=== PATIENT | female | born 1990 | race Caucasian/White ===

== ENCOUNTER 2019-01-02 05:32 | Inpatient (IN) ==
[~2019-01-02 05:32] MED LIST: *HR* Nalbuphine 10 MG/ML AMPUL IVP PRN; Famotidine 20 MG/2 ML VIAL IVP PRN; Lidocaine 1% 20 ML MDV INFILT PRN; Metoclopramide 10 MG/2 ML VIAL IVP PRN; Naloxone 0.4 MG/ML INJ IVP PRN; Ondansetron 4 MG/2 ML VIAL IVP PRN
[2019-01-02] MEDS ORDERED: Ringers Solution, Lactated 1,000 ML IVC SCH (05:45)
[2019-01-02 05:48] LABS: Basophils % 0.2 %; Eosinophils # 0.1 K/mcL (0.0-0.6); Eosinophils % 0.3 %; Hematocrit 35.1 % (35.3-44.9); Hemoglobin 11.9 g/dL (11.5-15.4); Immature Granulocytes % 0.6 % (0-4); Lymphocytes # 2.9 K/mcL (0.6-4.6); Lymphocytes % 13.7 %; Mean Corpuscular HGB Conc 33.9 g/dL (31.6-35.5); Mean Corpuscular Volume 88.4 fL (83.0-100.0); Mean Platelet Volume 11.6 fL (9.4-12.4); Monocytes # 1.3 K/mcL (0.0-1.3); Monocytes % 6.1 %; Neutrophils # 16.8 K/mcL (1.6-8.9); Platelet Count 218 K/mcL (140-400); Red Blood Count 3.97 M/mcL (3.82-4.97); Red Cell Distribution Width 12.1 % (11.5-14.5); Segmented Neutrophils % 79.1 %; White Blood Count 21.2 K/mcL (4.3-11.1)
--- NOTE | 2019-01-02 06:14 | OB/GYN History & Physical ---
Date of Encounter: 01/02/19 Time of Encounter: 06:12 Assessment and Plan (1) 39 weeks gestation of Current visit: Yes Status: Acute Admitted for delivery (2) Rh negative status during Current visit: Yes Status: Acute Rhogam evaluation following delivery Qualifiers: Trimester: third trimester Qualified Code(s): O26.893 - Other specified related conditions, third trimester; Z67.91 - Unspecified blood type, Rh negative History of Present Illness Chief complaint: Spontaneous labor HPI: Ms. Ochoa is a 28 year old female at 39w6d presents to labor and delivery with complaints of contractions that started around midnight and progressively got stronger and closer together. Patient denies LOF but reports bloody show and good movement. Patient denies any complications with current . Patient received care with Dr. Barbosa. Blood type: AB Negative Rubella: Immune Hep B: Nonreactive GBS: Negative Past Med Surg Social Fam HX - Past Medical History Source: patient Medical history: no medical history Psychiatric history: no psych history - Past Surgical History Surgical History: appendectomy Additional surgical history: Appendectomy 2016 - Social History Smoking Status: Never smoker Smokeless Tobacco Status: No Alcohol use: none Drug use: none Current living situation: Home - Independent Activity Level: Independent ambulation Recent Out of Country Travel Within the Last 8 Weeks: No Exposure or Possible Exposure to Illness During Travel: No - Family History Father Hx Family GI Disorders: Yes (chrons) Obstetrical History - Pregnancies : 4 Para: 2 Term: 2 : 0 Ab's: 1 Livin Medications and Allergies Vit No.138/Folic/Dha [Alive Gummy] 1 each PO DAILY 08/18/18 [ History] Ferrous Sulfate 1 tab PO DAILY 01/02/19 [History] Allergy/AdvReac Type Severity Reaction Status Date / Time No Known Allergies Allergy Verified 01/02/19 05:30 Review of System OB - Constitutional Constitutional ROS IM: no chills, no fever(s), no headache(s) - Cardiovascular Cardiovascular: no chest pain, no edema, no palpitations, no paroxysmal n octurnal dyspnea, no syncope - Respiratory Respiratory: no dyspnea - Gastrointestinal Gastrointestinal: no abdominal pain, no constipation, no cramping, no diarrhea, no heartburn, no nausea, no vomiting - Genitourinary Genitourinary: no abnormal vaginal bleeding, no dysuria, no flank pain, no urinary frequency, no urinary urgency, no vaginal discharge, no vaginal odor Exam - Constitutional Constitutional: well developed, well nourished, no acute distress, average body habitus - HEENT HEENT: Normocephaly, Mucus Membranes Moist - Neck Neck exam: full ROM, supple - Lungs Respiratory exam: CTAB - Cardiovascular Cardiovascular exam: RRR, +S1, +S2 - Abdomen Abdomen: Present: bowel sounds normal, gravid, non tender - Extremities Extremities exam: full ROM, normal inspection Deep Tendon Reflex Grade: 2+ Normal - Cervix Dilation: 5 (per RN) Effacement: 80 Station: -1 - Uterus Uterus exam: Present: normal size, normal contour - Anus/Rectum Anus/Rectum: Present: normal perianal skin - Comments Comments: FHR 135 bpm moderate variability +15x15 accels no decels noted. Contractions 2-3 min apart. Cat. 1 tracing Results Result Diagrams: 01/02/19 05:38 Abnormal lab results WBC 21.2 K/mcL (4.3-11.1) H 01/02/19 05:38 Hct 35.1 % (35.3-44.9) L 01/02/19 05:38 16.8 K/mcL (1.6-8.9) H 01/02/19 05:38 All other labs normal. - VTE Reasons for not Prescribing Prophylaxis: Treatment not Indicated - Low risk for VTE
--- NOTE | 2019-01-02 08:48 | OB Labor Progress Note ---
Date of Encounter: 01/02/19 Time of Encounter: 08:48 Labor Progress Note - Subjective Subjective: Patient coping well with contractions. She currently is not planning an epidural - Cervix Cervix: 5-6 cm at last SVE - Heart Tones Heart Tones: FHR category I - [place]: 3-5 minutes - Plan Plan: Intermittent monitoring unless patient desires epidural Epidural or IV medication if patient desires Anticipate
--- NOTE | 2019-01-02 13:00 | OB Labor Progress Note ---
Date of Encounter: 01/02/19 Time of Encounter: 12:58 Labor Progress Note - Subjective Subjective: Patient coping well with contractions - Vital Signs Vital Signs: WNL - Cervix Cervix: 7/100/0 - Heart Tones Heart Tones: FHR 125 bpm, moderate variability, no accels, occassional early. - [place]: 4-5 minutes - Interventions Interventions: SVE Patient prefers to wait for AROM - Plan Plan: Continue expectant management Epidural if patient requests AROM when appropriate and patient is agreeable May shower for pain relief Intermittent monitoring Anticipate
[2019-01-02] MEDS ORDERED: Epidural Premix (fent/bupiv) 110 ML EP ONE (17:50)
--- NOTE | 2019-01-02 18:26 | Anesthesia Evaluation PreOp ---
Date of Encounter: 01/02/19 Time of Encounter: 18:26 - Past History Planned Operation: SUSANNA Cardiac History: Denies any Significant Hx Pulmonary History: Denies Any Significant HX TELEVISION PRODUCER History: Denies Any Significant HX Other Medical History: Denies Any Significant HX Anesthesia History: No Prior Anesthetic Complications, Past Anesthesia Alcohol Use: none Drug use: none Medications and Allergies Vit No.138/Folic/Dha [Alive Gummy] 1 each PO DAILY 08/18/18 [History] Ferrous Sulfate 1 tab PO DAILY 01/02/19 [History] Allergy/AdvReac Type Severity Reaction Status Date / Time No Known Allergies Allergy Verified 01/02/19 05:30 - Meds/Allergy Pre-op Review Medications Reviewed: Yes Allergies Reviewed: Yes Beta Blockers on Current Med List: No Anesthesia Results - Labs 01/02/19 05:38 Anesthesia Exam O2 Sat Height 1.63 m Weight 75.75 kg NPO (# of Hours): 8 Pain Scale: 10 Pain Scale Used: Numeric (1 - 10) - HEENT Pupil (Motor): Pupils equal Mallampati: II Teeth: Normal Oral Opening: Greater than 3 - TELEVISION PRODUCER LOC: Oriented TELEVISION PRODUCER Motor: Normal RUE, Normal LUE, Normal RLE, Normal LLE, Normal Face TELEVISION PRODUCER Sensory: Normal: RUE, LUE, RLE, LLE, Face - Cardiac Rhythm: Regular Murmur: None JVD: No Carotid Bruit: No - Pulmonary Breath Sounds: bilateral Clear Respiratory Effort: Symmetrical Anesthesia Assess/Plan ASA Score: 2 Level of consciousness: Cooperative, Oriented Anesthetic Plan: General, Epidural Autologous Blood: Yes Monitoring Plan: Standard Monitors
--- NOTE | 2019-01-02 18:28 | Anesthesia Procedures ---
Date of Encounter: 01/02/19 Time of Encounter: 18:27 Procedures: Anesthesia - Epidural/Spinal Patient ID/Chart reviewed: Yes Patient examined: Yes OB Eval: Gestational age: 39 OB Eval: : 4 OB Eval: Hx Para: 2 OB Eval: Dilated at (cm): 8 OB Eval: Contractions: Non-stressed pattern Consent Obtained: Yes Supplemental Oxygen: None/Room Air Site Prep: Aseptic Technique, Sterile prep and drape, Povidone-Iodine 1% Patient position: upright Local Anesthetic: Lidocaine 1% Amount of Local Anesthetic used: 3 Touhy Needle Gauge: 18 Touhy Needle Depth (cm): 6 Catheter Depth at Skin (cm): 20 Test Dose (1.5% Lido + Epi): Volume given (mls): 5 Test Dose Result: Negative Loading Dose: Other: 5mls of epidural pharm bag Loading Dose Administered: Thru Catheter Infusion Med: 0.125% Bupivacaine w/ 2 mcg/ml Fentanyl Infusion Rate (mls/hr): 15 ([id number] [id number]) Catheter Secured in Place: Tegaderm, Tape Interspace Used: L3-L4 Loss of Resistance (FAN): Yes Blood: No CSF: No Paresthesia: No Procedure: pt tolerated procedure well. no complications. vss. fhr stable.
[2019-01-02] MEDS ORDERED: Epidural Premix (fent/bupiv) 110 ML EP SCH (18:30)
[2019-01-02] MEDS ORDERED: Ibuprofen 600 MG TABLET PO ONE (19:28)
--- NOTE | 2019-01-02 19:34 | OB/GYN Procedure Note ---
Delivery - Delivery Date: 01/02/19 Provider: Lilo Gramajo Intrapartum events: none Delivery induction: none Delivery augmentation: rupture of membranes Delivery monitor: external FHT, external uterine Anesthesia: epidural Quantitated Blood Loss: 250 - (s) Infant A Delivery Date: 01/02/19 Infant Delivery Time: 19:05 Presentation: vertex Position: SAMANTA Gender: Male Viability: Viable at 1 minute: 8 at 5 mins: 9 Shoulder Dystocia: not encountered Placenta: spontaneous Cord: nuchal cord, nuchal reduced - Repair Episiotomy: none Laceration Description: Perineal - 1st Degree - Complications Delivery complications: none Delivery comments: Patient requested an epidural when she was 8 cm dilated. Shortly after epidural was placed SVE revealed 8 cm 100% effaced and 0 station. AROM was completed for small amount of clear fluid. Patient rapidly progressed to complete and +2 station with an urge to push. Under maternal effort, spontaneous delivery of viable male infant over first-degree perineal laceration, repaired with one stitch with 3-0 Vicryl. Nuchal cord noted after delivery of infant head and easily reduced. placed on maternal abdomen for drying and stimulation. Cord clamped and cut after pulsation ceased. Spontaneous delivery of intact placenta, EBL 250 mLs. No shoulder dystocia or meconium encountered. Mother and infant in kangaroo care for 2 hour recovery. - Disposition Mom disposition: stable in LDR disposition: stable in LDR
[2019-01-02] MEDS ORDERED: Lanolin 7 G OINT...G. TP PRN (21:47)
[2019-01-02] MEDS ORDERED: Oxytocin 20 units/ LR 1000 mL 20 UNIT/1,000 ML BAG IVC SCH (21:47)
[2019-01-02] MEDS ORDERED: Rho Immune Globulin 1,500 UNIT SYRINGE IM PRN (21:47)
[2019-01-02] MEDS ORDERED: Benzocaine/Menthol 56 GM AEROSOL SPRAY TP PRN (21:47)
[2019-01-02] MEDS ORDERED: Acetaminophen 325 MG TABLET PO PRN (21:47)
[2019-01-03] MEDS: Ibuprofen 600 MG TABLET PO PRN ×2 (03:24→16:49)
--- NOTE | 2019-01-03 08:35 | Discharge Summary ---
Date of Encounter: 01/03/19 Time of Encounter: 08:33 - Discharge Diagnosis (1) Status post vaginal delivery Priority: Primary Status: Acute Comments: 28 y/o F presented for yesterday at 39 week with recovering well. She reports bleeding has slowed with out large clots. She is tolerating regular diet with flatus but still awaiting BM. Denies dysuria. Pain well managed Baby is struggling with breast feeding thus is pumping and feeding. (2) Rh negative status during Priority: Secondary Status: Acute Qualifiers: Trimester: third trimester Qualified Code(s): O26.893 - Other specified related conditions, third trimester; Z67.91 - Unspecified blood type, Rh negative (3) Breast feeding status of mother Priority: Secondary Status: Acute Comments: Breast feeding struggle with getting baby to feed - support - breast pump already at home - Discharge Medications Prescriptions: New Docusate [Colace] 100 mg PO BID #60 capsule Benzocaine/Menthol [place] [Dermoplast [place]] 1 appl TP QID PRN aerosol PRN Reason: See Comments Lanolin [Lansinoh] 1 appl TP TID PRN oint...g. PRN Reason: Sore Nipples Ibuprofen [Motrin] 600 mg PO Q6H PRN #60 tablet PRN Reason: Cramping Acetaminophen [Tylenol] 650 mg PO Q6H PRN tablet PRN Reason: Mild Pain Continued Vit No.138/Folic/Dha [Alive Gummy] 1 each PO DAILY Ferrous Sulfate 1 tab PO DAILY Home Medications: Vit No.138/Folic/Dha [Alive Gummy] 1 each PO DAILY 08/18/18 [History] Ferrous Sulfate 1 tab PO DAILY 01/02/19 [History] Acetaminophen [Tylenol] 650 mg PO Q6H PRN tablet 01/03/19 [Rx] Benzocaine/Menthol [place] [Dermoplast [place]] 1 appl TP QID PRN aerosol 01/03/19 [Rx] Docusate [Colace] 100 mg PO BID #60 capsule 01/03/19 [Rx] Ibuprofen [Motrin] 600 mg PO Q6H PRN #60 tablet 01/03/19 [Rx] Lanolin [Lansinoh] 1 appl TP TID PRN oint...g. 01/03/19 [Rx] Allergies/Adverse Reactions: Allergy/AdvReac Type Severity Reaction Status Date / Time No Known Allergies Allergy Verified 01/02/19 05:30 Data Procedures and tests throughout hospitalization: Laboratory Tests 01/02/19 05:38 WBC 21.2 H RBC 3.97 Hgb 11.9 Hct 35.1 L MCV 88.4 MCH 30.0 MCHC 33.9 RDW 12.1 Plt Count 218 MPV 11.6 Immature Gran % 0.6 Seg Neutrophils % 79.1 Lymphocytes % 13.7 Monocytes % 6.1 Eosinophils % 0.3 Basophils % 0.2 Neutrophils # 16.8 H Lymphocytes # 2.9 Monocytes # 1.3 Eosinophils # 0.1 Basophils # 0.0 Date of admission: 01/02/19 05:32 Consults: 01/02/19 21:47 Consult to Hand Slitter [CONS] Routine Comment: Vaginal delivery, consult needed Discharging clinician: Radha Bateman Anticipated date of discharge: 01/03/19 - Patient Status Disposition: Home, Self-Care Condition: Good Functional capacity at discharge: independent ambulation Overall status at discharge: patient is progressing back to baseline - Discharge Instructions Follow Up With: NONE,PCP [Primary Care Provider] - Juan Carlos Barbosa MD [Partnered Physician] - - Diet and Activity Activity: increase activity as tolerated Diet: advance to your usual diet Hospital Course Reason for admission: active labor Delivery: Episiotomy: none Laceration: 1st degree Other procedures: none complications: none Discharge diagnosis: IUP at term delivered baby: male Hospital course: Delivery - Delivery Date: 01/02/19 Provider: Lilo Gramajo Intrapartum events: none Delivery induction: none Delivery augmentation: rupture of membranes Delivery monitor: external FHT, external uterine Anesthesia: epidural Quantitated Blood Loss: 250 - Infant (s) Infant A Delivery Date: 01/02/19 Delivery Time: 19:05 Presentation: vertex Position: SAMANTA Gender: Male Viability: Viable at 1 minute: 8 at 5 mins: 9 Shoulder Dystocia: not encountered Placenta: spontaneous Cord: nuchal cord, nuchal reduced - Repair Episiotomy: none Laceration Description: Perineal - 1st Degree - Complications Delivery complications: none Delivery comments: Patient requested an epidural when she was 8 cm dilated. Shortly after epidural was placed SVE revealed 8 cm 100% effaced and 0 station. AROM was completed for small amount of clear fluid. Patient rapidly progressed to complete and +2 station with an urge to push. Under maternal effort, spontaneous delivery of viable male infant over first-degree perineal laceration, repaired with one stitch with 3-0 Vicryl. Nuchal cord noted after delivery of infant head and easily reduced. placed on maternal abdomen for drying and stimulation. Cord clamped and cut after pulsation ceased. Spontaneous delivery of intact placenta, EBL 250 mLs. No shoulder dystocia or meconium encountered. Mother and in kangaroo care for 2 hour recovery. Time Attestation: Total time spent providing and/or coordinating discharge services: Exam - Constitutional Vitals: Temp Pulse Resp BP Pulse Ox 98.3 F 62 16 107/60 99 01/03/19 08:21 01/03/19 08:21 01/03/19 08:21 01/03/19 08:21 01/03/19 08:21 General appearance IM: cooperative, A&O X 3, no acute distress, answers questions appropriately - Respiratory Respiratory exam: Present: CTAB. Absent: accessory muscle use, respiratory distress - Cardiovascular Cardiovascular exam IM: Present: RRR. Absent: diastolic murmur, systolic murmur - GI/Abdominal GI/Abdominal exam IM: normal bowel sounds - Rectal Rectal exam: deferred - Uterine Tone: Firm Uterus Position: 1 Finger Below Umbilicus - Extremities Exam Extremities exam IM: Present: full ROM, radial pulses palpable and symmetrical. Absent: calf tenderness, pedal edema - Neurological Exam Neurological exam: abnormal gait, alert, oriented X3, no focal deficits - Psychiatric Additional comments: reports good mood
[2019-01-03] MEDS ORDERED: Prenatal Vit/FA 1 EACH TABLET PO SCH (09:00)
[2019-01-03 17:12] VITALS: BP 112/71
== END 2019-01-03 21:00 | disposition home or self-care (01) | DRG 807 ==
LOC: 1NENULAB → 1NENUOBS 21:46
PROVIDERS: ADMIT Advanced Practice Midwife; ATTEND Advanced Practice Midwife